=== PATIENT | female | born 1985 ===

== ENCOUNTER → 2017-07-15 | Outpatient (CLI) | payer BC | LOC: SLR 11:00 | PROVIDERS: ATTEND Otolaryngology | DX: G47.30 Sleep apnea, unspecified (principal) | CPT/HCPCS: G0399 ==

== ENCOUNTER → 2017-08-17 | Outpatient (CLI) | payer BC | LOC: SLR 11:00 | PROVIDERS: ATTEND Otolaryngology | DX: G47.30 Sleep apnea, unspecified (principal); R40.0 Somnolence | CPT/HCPCS: G0399 ==